=== PATIENT | female | born 1960 | race Caucasian/White ===

== ENCOUNTER → 2019-01-11 10:09 | Outpatient (CLI) | payer OTHER, SELFPAY ==
--- NOTE | 2019-01-11 10:13 | BI_ITS ---
MAMMOGRAPHY - BILATERAL SCREENING REASON FOR EXAM: Female, 59 years old. Routine annual screening examination. PERTINENT HISTORY: Remote left and right stereotactic breast biopsies. TECHNIQUE: Digital bilateral breast nichole (3D mammographic acquisition) in the CC and MLO projections. 2-D mediolateral oblique (MLO) and craniocaudad (CC) views of both breasts were obtained. CAD: Full Field Digital Mammography with Computer Added Detection was performed. COMPARISON: Comparison is made with prior study dated September 29, 2017 and September 22, 2016. FINDINGS: Breast Composition: There are scattered areas of fibroglandular density. There are no dominant masses or suspicious calcifications. 2 Sterotactic there are surgical markers are seen in the upper lateral aspect of the left breast. A sterile fact that tissue clip marker is seen in the deep midportion of the right breast. No other significant abnormalities are identified. There has been no significant change since the prior study. BI/SCREENING MAMM (CAD), BILAT IMPRESSION: Stable bilateral screening mammogram. Yearly follow-up mammogram recommended. (A) ASSESSMENT CATEGORY: BIRADS Category 2: Benign. A letter regarding these results will be sent to the patient by the facility within 30 days. Approximately 10% of breast cancers are not detected by mammography. A normal mammogram should not delay biopsy of a clinically suspicious abnormality. [id number] Electronically Signed: Rob Perez, at 13:42 EDT , Service support ,
== END ==
PROVIDERS: Family Provider Internal Medicine; PCP Internal Medicine; Referring Provider Internal Medicine; Visit Provider Internal Medicine
DX: Z12.31 Encounter for screening mammogram for malignant neoplasm of breast (principal)
CPT/HCPCS: 77063; 77067

== ENCOUNTER → 2021-06-29 | Outpatient (CLI) | payer SELFPAY ==
[2021-07-05 21:48] LABS: HPV APTIMA, High Risk Negative (Negative)
== END | disposition home or self-care (01) ==
LOC: LABSPEC 12:19
PROVIDERS: PCP Internal Medicine; Visit Provider Obstetrics & Gynecology
DX: Z12.4 Encounter for screening for malignant neoplasm of cervix (principal)
CPT/HCPCS: 87624; 88175; G0145

== ENCOUNTER → 2021-07-28 08:26 | Outpatient (CLI) | payer SELFPAY ==
--- NOTE | 2021-07-28 08:32 | BI_ITS ---
MAMMOGRAPHY - BILATERAL SCREENING REASON FOR EXAM: Female, 61 years old. Routine annual screening examination. PERTINENT HISTORY: Non-contributory. Remote left stereotactic and left ultrasound-guided breast biopsies. Prior right stereotactic breast biopsy. TECHNIQUE: Digital bilateral breast arnulfo (3D mammographic acquisition) in the CC and MLO projections. 2-D mediolateral oblique (MLO) and craniocaudad (CC) views of both breasts were obtained. CAD: Full Field Digital Mammography with Computer Added Detection was performed. COMPARISON: Comparison is made with prior examination dated 01/11/2019 and 09/29/2017. FINDINGS: Breast Composition: There are scattered areas of fibroglandular density. There are no dominant masses or suspicious calcifications. Once again, 2 Sterotactic tissue clip markers are seen in the upper lateral aspect of the left breast. A tissue clip marker is also seen in the deep midportion of the right breast No other significant abnormalities are identified. There has been no significant change since the prior study. BI/SCRN MAMM (CAD)W/ARNULFO BILAT IMPRESSION: Stable bilateral screening mammogram. Yearly follow-up mammogram recommended. (A) ASSESSMENT CATEGORY: BIRADS Category 2: Benign. A letter regarding these results will be sent to the patient by the facility within 30 days. Approximately 10% of breast cancers are not detected by mammography. A normal mammogram should not delay biopsy of a clinically suspicious abnormality. [id number] Electronically Signed: Rob Perez MD at 9:29 EDT , Service support ,
--- NOTE | 2021-07-28 09:00 | BD_ITS ---
STUDY: DUAL ENERGY X-RAY ABSORPTIOMETRY / DXA REASON FOR EXAM: Female, 61 years old. [id number]. Patient is postmenopausal. TECHNIQUE: Bone Mineral Density (BMD) measurements of lumbar spine and bilateral hips were obtained. COMPARISON: Comparison is made with prior study dated 09/22/2016. FINDINGS: Lumbar Spine (L1-L4): g/cm2 (0.799) / T-score (-2.3) / Z-score (-0.7) Findings are suggestive of osteopenia with a high fracture risk. Left Femur Total: g/cm2 (0.757) / T-score (-1.5) / Z-score (-0.5) Left Femoral Neck: g/cm2 (0.716) / T-score (-1.2) / Z-score (0.2) Right Femur Total: g/cm2 (0.781) / T-score (-1.3) / Z-score (-0.3) Right Femoral Neck: g/cm2 (0.670) / T-score (-1.6) / Z-score (-0.3) The T-Scores on the most recent prior examination were: Lumbar Spine (L1-L4): There has been worsening of bone density since the previous examination. Left Femur Total: which represents a worsening of 6.6%. Right Femur Total: which represents a worsening of 3.9%. BD/Dexa Bone Density Study IMPRESSION: The patient is considered osteopenic as outlined below according to World Lang Organization (WHO) criteria with a high fracture risk. There has been worsening of bone density since the previous examination. Reference Information: The T-score is the number of standard deviations above or below the standard which is normal for young adults at their peak bone mineral density. The World Health Organization (WHO) interprets the T-scores as follows: Above -1 Normal bone density Between -1 and -2.5 Osteopenia Equal to / or below -2.5 Osteoporosis As a practical clinical guideline, osteopenia may be graded as follows: Mild -1 through -1.5 Moderate -1.6 through -2.0 Severe -2.1 through -2.4 The Z-score is the number of standard deviations above or below age-matched controls. A Z-score of less than -1.5 would be considered abnormal. References: 1. NIH Osteoporosis and Related Bone Diseases www osteo.org 2. International Society for Clinical Densitometry www iscd.org 3. National Osteoporosis Foundation www nof.org Electronically Signed: Rob Perez MD at 9:28 EDT , Service support ,
== END ==
PROVIDERS: PCP Internal Medicine; Visit Provider Obstetrics & Gynecology
DX: Z12.31 Encounter for screening mammogram for malignant neoplasm of breast (principal); N95.1 Menopausal and female climacteric states
CPT/HCPCS: 77063; 77067; 77080

== ENCOUNTER → 2023-08-08 | Outpatient (CLI) | payer SELFPAY ==
--- NOTE | 2023-08-08 12:28 | BI_ITS ---
MAMMOGRAPHY - BILATERAL SCREENING REASON FOR EXAM: Female, 63 years old. Routine annual screening examination. PERTINENT HISTORY: Prior bilateral stereotactic breast biopsies. TECHNIQUE: Digital bilateral breast arnulfo (3D mammographic acquisition) in the CC and MLO projections. 2-D mediolateral oblique (MLO) and craniocaudad (CC) views of both breasts were obtained. CAD: Full Field Digital Mammography with Computer Added Detection was performed. COMPARISON: Comparison is made with prior study July 28, 2021 and January 11, 2019. FINDINGS: Breast Composition: There are scattered areas of fibroglandular density. There are no dominant masses or suspicious calcifications. Once again, 2 tissue markers are seen in the upper lateral aspect of the left breast as well as a tissue clip marker in the deep midportion of the right breast. No other significant abnormalities are identified. There has been no significant change since the prior study. BI/SCRN MAMM (CAD)W/ARNULFO BILAT IMPRESSION: Stable bilateral screening mammogram. Yearly follow-up mammogram recommended. (A) ASSESSMENT CATEGORY: BIRADS Category 2: Benign. A letter regarding these results will be sent to the patient by the facility within 30 days. Approximately 10% of breast cancers are not detected by mammography. A normal mammogram should not delay biopsy of a clinically suspicious abnormality. [id number] Electronically Signed: Rob Perez MD at 13:34 EDT ,
== END | disposition home or self-care (01) ==
PROVIDERS: PCP Internal Medicine; Referring Provider Internal Medicine; Visit Provider Internal Medicine
DX: Z12.31 Encounter for screening mammogram for malignant neoplasm of breast (principal)
CPT/HCPCS: 77063; 77067

== ENCOUNTER → 2024-10-07 | Outpatient (CLI) | payer SELFPAY ==
[2024-10-07 12:46] LABS: Absolute Lymphocyte Count 1.31 X10^3/uL (0.83-4.51); Absolute Neutrophil Count 4.9 X10^3/uL (2.0-7.7); Basophil# 0.04 X10^3/uL; Basophil% 0.6 % (0-1); Eosinophil# 0.04 X10^3/uL; Eosinophils% 0.6 % (0-5); Hematocrit 41.8 % (37-47); Hemoglobin 14.1 g/dL (12.0-15.0); Lymphocyte # 1.31 X10^3/ul (0.83-4.51); Mean Corp Hgb Conc 33.7 g/dL (32-36); Mean Corpuscular Hgb 33.2 pg (27.0-32.0); Mean Corpuscular Volume 98.4 fL (81-99); Mean Platelet Vol. 9.7 fl (6.2-12.0); Monocyte# 0.61 X10^3/uL; Monocyte% 8.8 % (0-10); NRBC Flagged by Analyzer 0 % (0-5); Neutrophil % 70.9 % (47-70); Platelet Count 302 K/mm3 (150-450); RBC Distribution Width CV 12.2 % (11.6-14.6); RBC Distribution Width SD 44.2 fl (35.1-43.9); Red Blood Count 4.25 M/mm3 (4.2-5.4); White Blood Count 6.9 K/mm3 (4.4-11.0)
--- NOTE | 2024-10-07 13:00 | RAD_ITS ---
STUDY: X-RAY CHEST REASON FOR EXAM: Female, 64 years old. Retinal artery branch occlusion, left eye TECHNIQUE: PA and lateral views of the chest. COMPARISON: 05/13/2014 FINDINGS: The lungs are clear and expanded. There is no demonstrated pleural abnormality. Normal size heart. Normal mediastinum and gianna. Normal visualized pulmonary arteries. Normal visualized aortic arch and descending thoracic aorta. Normal visualized thoracic spine. Normal visualized ribs, clavicles, and shoulders. There is no demonstrated abnormality of the visualized soft tissue structures of the upper abdomen. RAD/Chest PA and Lateral IMPRESSION: Normal x-ray examination of the chest. Electronically Signed: Guillaume Garvin MD at 12:04 [facility] ,
[2024-10-07 13:19] LABS: Anion Gap 4 (5-15); BUN 21 mg/dL (7-18); BUN/Creat Ratio 26.2 RATIO (10-20); Calcium,Total 9.9 mg/dL (8.5-10.1); Chloride 106 mmol/L (98-107); EST Glomerular Filtration Rate 77 mL/min (>60); Est Glom Filt Rate - Afr Amer 93 mL/min (>60); Glucose 95 mg/dL (74-106); Potassium 3.6 mmol/L (3.5-5.1); Sodium Level 139 mmol/L (136-145)
[2024-10-07 13:35] LABS: Syphilis Antibodies Non-reactive
[2024-10-10 13:07] LABS: ANTINUCLEAR ANTIBODIES DIRECT Negative (Negative)
[2024-10-14 16:09] LABS: Angiotensin Convert Enzyme 40 U/L (14-82); Lyme IgG P18 Ab Absent (.); Lyme IgG P23 Ab Absent (.); Lyme IgG P28 Ab Absent (.); Lyme IgG P30 Ab Absent (.); Lyme IgG P39 Ab Absent (.); Lyme IgG P41 Ab Absent (.); Lyme IgG P45 Ab Absent (.); Lyme IgG P58 Ab Absent (.); Lyme IgG P66 Ab Absent (.); Lyme IgG P93 Ab Absent (.); Lyme IgG WB Interpretation Negative (.); Lyme IgM P23 Ab Absent (.); Lyme IgM P39 Ab Absent (.); Lyme IgM P41 Ab Absent (.); Lyme IgM WB Interpretation Negative (.); QNTFERON TB Mitogen Value > 10.00 IU/mL (.); QNTFERON TB Nil Value 0.01 IU/mL (.); QNTFERON TB1+ Ag Value 0.03 IU/mL (.); QNTFERON TB2+ Ag Value 0.05 IU/mL (.); QNTIFERON TB Positive Criteria Negative (Negative)
== END | disposition home or self-care (01) ==
PROVIDERS: PCP Internal Medicine
DX: H34.232 Retinal artery branch occlusion, left eye (principal)
CPT/HCPCS: 36415; 71046; 80048; 82164; 85025; 86038; 86480; 86617; 86780

== ENCOUNTER → 2024-10-16 | Outpatient (CLI) | payer SELFPAY ==
--- NOTE | 2024-10-16 10:39 | ECHOD_ITS ---
Reason For Study: Retinal Artery Branch Occlusion Procedure This was a 2D Doppler, Color Flow transthoracic echocardiogram. Exam performed in department. Left Ventricle Normal LV size. The estimated ejection fraction is 65 %. No evidence for diastolic dysfunction. Right Ventricle Normal RV size. Normal systolic function. Atria The left and right atria are normal. Bubble contrast study negative for right to left interatrial shunt. Mitral Valve There is no mitral valve stenosis. No mitral valve insufficiency. Tricuspid Valve There is no tricuspid stenosis. Trivial tricuspid valve insufficiency. Pulmonary artery systolic pressure is 25 mmHg. Aortic Valve Trisinus/trileaflet aortic valve. There is no aortic stenosis. No aortic valve insufficiency. Pulmonic Valve There is no pulmonic valvular stenosis. No pulmonic valve insufficiency. Great Vessels Normal aortic root. Pericardium/Pleural No pericardial effusion. Medication 22 gauge I.V. with prn adaptor inserted into right arm. Performed a rapid injection of agitated mix of 9 cc saline and 1cc air to assess for atrial septal defect. MMode/2D Measurements & Calculations LVIDd: 3.9 cm IVSd: 0.95 cm LAV(MOD-bp): 20.8 ml LVIDs: 2.1 cm LVPWd: 0.92 cm RVDd: 2.6 cm FS: 47.3 % LAV(MOD-bp) Indexed: 14.1 ml/m2 LAV(MOD-sp2): 21.3 ml LAV(MOD-sp4): 18.3 ml SV(MOD-sp4): 39.6 ml SV(sp4-el): 43.0 ml LVAd ap4: 22.0 cm2 LVLd ap4: 6.9 cm SI(MOD-sp4): 26.9 ml/m2 EDV(MOD-sp4): 56.4 ml EDV(sp4-el): 59.5 ml LVAs ap4: 10.5 cm2 LVLs ap4: 5.6 cm ESV(MOD-sp4): 16.8 ml ESV(sp4-el): 16.5 ml EF(MOD-sp4): 70.2 % EF(sp4-el): 72.3 % LA dimension(2D): 3.0 cm LA A4 area: 9.0 cm2 RA A4 area: 6.5 cm2 TAPSE: 1.5 cm Time Measurements MV dec time: 0.20 sec Doppler Measurements & Calculations MV E max corbin: 97.9 cm/sec Lat Peak E' Corbin: 7.8 cm/sec Med Peak E' Corbin: 7.6 cm/sec MV A max corbin: 112.2 cm/sec E/E' lat: 12.6 E/E' med: 12.8 MV E/A: 0.87 MV V2 max: 124.5 cm/sec MV P1/2t max corbin: 107.1 cm/sec Ao V2 max: 112.9 cm/sec MV max P.2 mmHg MV P1/2t: 62.2 msec Ao max P.1 mmHg MV V2 mean: 58.8 cm/sec MV dec slope: 504.3 cm/sec2 Ao V2 mean: 83.9 cm/sec MV mean P.7 mmHg MVA(P1/2t): 3.5 cm2 Ao mean P.1 mmHg MV V2 VTI: 31.3 cm Ao V2 VTI: 28.2 cm LV V1 max: 102.4 cm/sec PA V2 max: 104.5 cm/sec TR max corbin: 226.9 cm/sec LV V1 max P.2 mmHg TR max P.6 mmHg ECHO/Echo Complete Interpretation Summary The estimated ejection fraction is 65 %. No evidence for diastolic dysfunction. Ordering Physician: CARLOS COLLIER Referring Physician: CARLOS COLLIER Performed By: Ok Arnold RCS
[2024-10-16 12:58] LABS: Erythrocyte Sedimentation Rate 5 mm/hr (0-30)
[2024-10-16 13:12] LABS: CRP < 2.90 mg/L (0.0-3.0)
[2024-10-17 15:08] LABS: Cytoplasmic Ab (C-ANCA) <1:20 titer (Neg:<1:20); Perinuclear Ab (P-ANCA) <1:20 titer (Neg:<1:20); Toxoplasma Gondii IgG < 3.0 IU/mL (0.0-7.1); Toxoplasma Gondii IgM < 3.0 AU/mL (0.0-7.9)
== END | disposition home or self-care (01) ==
PROVIDERS: PCP Family Medicine
DX: H34.232 Retinal artery branch occlusion, left eye (principal)
CPT/HCPCS: 36415; 85652; 86037; 86140; 86695; 86696; 86777; 86778; 93306; A4216

== ENCOUNTER → 2024-11-06 | Outpatient (CLI) | payer SELFPAY ==
[2024-11-06 12:22] LABS: Absolute Lymphocyte Count 1.54 X10^3/uL (0.83-4.51); Absolute Neutrophil Count 2.5 X10^3/uL (2.0-7.7); Basophil# 0.04 X10^3/uL; Basophil% 0.9 % (0-1); Eosinophil# 0.08 X10^3/uL; Eosinophils% 1.7 % (0-5); Hematocrit 40.3 % (37-47); Hemoglobin 13.1 g/dL (12.0-15.0); Lymphocyte # 1.54 X10^3/ul (0.83-4.51); Lymphocyte % 33.3 % (19-41); Mean Corp Hgb Conc 32.5 g/dL (32-36); Mean Corpuscular Hgb 31.8 pg (27.0-32.0); Mean Corpuscular Volume 97.8 fL (81-99); Mean Platelet Vol. 10.1 fl (6.2-12.0); Monocyte# 0.46 X10^3/uL; Monocyte% 9.9 % (0-10); NRBC Flagged by Analyzer 0 % (0-5); Neutrophil # 2.46 X10^3/uL (2.7-7.7); Neutrophil % 53.1 % (47-70); Platelet Count 278 K/mm3 (150-450); RBC Distribution Width CV 12.3 % (11.6-14.6); RBC Distribution Width SD 44.1 fl (35.1-43.9); Red Blood Count 4.12 M/mm3 (4.2-5.4); White Blood Count 4.6 K/mm3 (4.4-11.0)
[2024-11-06 12:36] LABS: Vitamin D,25 Hydroxy 81.3 ng/mL
[2024-11-06 12:55] LABS: ALB/GLOB Ratio 1.1 RATIO (0.9-2.4); AST(SGOT) 19 U/L (15-37); Alanine Aminotransfer ALT/SGPT 33 U/L (13-56); Albumin, Serum 3.9 g/dL (3.2-5.0); Alkaline Phosphatase 61 U/L (45-117); Anion Gap 7 (5-15); BUN 20 mg/dL (7-18); BUN/Creat Ratio 26.5 RATIO (10-20); Calcium,Total 9.4 mg/dL (8.5-10.1); Chloride 105 mmol/L (98-107); Cholesterol 257 mg/dL (200); Creatinine, Serum 0.76 mg/dL (0.55-1.02); EST Glomerular Filtration Rate 82 mL/min (>60); Est Glom Filt Rate - Afr Amer 99 mL/min (>60); Globulin 3.5 g/dL (2.2-4.2); Glucose 92 mg/dL (74-106); High Density Lipoprotein 70 mg/dL; Protein, Total 7.4 g/dL (6.4-8.2); Sodium Level 139 mmol/L (136-145); Triglycerides 64 mg/dL; Very Low Density Lipoprotein 13 mg/dL (5-40)
== END | disposition home or self-care (01) ==
PROVIDERS: PCP Family Medicine; Referring Provider Family Medicine; Visit Provider Family Medicine
DX: M85.80 Other specified disorders of bone density and structure, unspecified site (principal); Z13.228 Encounter for screening for other metabolic disorders; Z13.6 Encounter for screening for cardiovascular disorders
CPT/HCPCS: 36415; 80053; 80061; 82306; 84443; 85025

== ENCOUNTER → 2025-02-25 | Outpatient (CLI) | payer MEDICARE, BC, SELFPAY ==
--- NOTE | 2025-02-25 09:49 | BI_ITS ---
EXAM: SCRN MAMM (CAD)W/ARNULFO BILAT DATE: 02/25/2025 CLINICAL HISTORY: F, Age 65 y/o , SCREENING No family history. Prior bilateral stereotactic breast biopsies. TECHNIQUE: Bilateral screening digital breast tomosynthesis with 2D and 3D images. Computer aided detection. COMPARISON: Prior exam(s) dated August 08, 2023.. FINDINGS: TISSUE DENSITY: The breast tissue is composed of scattered area of fibroglandular density. Bilateral Breast Mammographic Findings: No significant masses, calcifications or other abnormalities are identified. Once again, there are 2 tissue clip markers in the slightly upper lateral aspect of the left breast. A tissue clip marker is also seen in the central portion of the right breast. No suspicious masses, areas of developing architectural distortion, or suspicious calcifications. There has been no significant interval change. BI/SCRN MAMM (CAD)W/ARNULFO BILAT IMPRESSION: OVERALL FINAL ASSESSMENT: BIRADS 2 BENIGN FINDING RECOMMENDATION: Routine annual follow-up in 1 Year A letter with findings and recommendations will be mailed to the patient. Reading Location: [place] [id number]
--- NOTE | 2025-02-25 09:54 | BD_ITS ---
PROCEDURE: DEXA BONE DENSITY STUDY 02/25/2025 REASON FOR EXAM: F, age 65 y/o . Postmenopausal. TECHNIQUE: DXA scan of sites with data reported below. REFERENCE LINKS: [facility] Adult Positions COMPARISON: July 28, 2021. FINDINGS: BMD and T-SCORES Lumbar spine: 0.846 g/cm2, T-score -1.8 Levels: L1 through L4 Change from prior: Improvement of 5.8%. Left femoral neck: 0.652 g/cm2, T-score -1.8 Femoral neck comparison data not recommended for monitoring change. Left total hip: 0.744 g/cm2, T-score -1.6 Change from prior: Loss of 1.7%. Right femoral neck: 0.656 g/cm2, T-score -1.7 Femoral neck comparison data not recommended for monitoring change. Right total hip: 0.747 g/cm2, T-score -1.6 Change from prior: Loss of 4.3%. The World Health Organization has defined the following categories based on bone density: Normal bone density: T-score equal to or greater than -1.0 Osteopenia: T-score between -1.0 and -2.5 Osteoporosis: T-score equal to or less than -2.5 The patient does meet the pharmacological treatment recommendations for prevention of osteoporosis. BD/Dexa Bone Density Study IMPRESSION: OSTEOPENIA. Recommend follow-up as clinically warranted. Reading Location: [place] [address]
== END | disposition home or self-care (01) ==
LOC: OPBD 09:47
PROVIDERS: PCP Family Medicine; Referring Provider Family Medicine; Visit Provider Family Medicine
DX: Z12.31 Encounter for screening mammogram for malignant neoplasm of breast (principal); M85.88 Other specified disorders of bone density and structure, other site
CPT/HCPCS: 77063; 77067; 77080

== ENCOUNTER 2025-04-02 11:30 | Outpatient (RCR) | payer MEDICARE, BC, SELFPAY ==
--- NOTE | 2025-03-13 12:53 | HP.PTEVAL ---
Patient's Visit Information Visit Information Visit Information: SAVANNAH CORREIA is a 65 year old F referred to Physical Therapy by Katherine Chew [facility], with a diagnosis of Bone Density. Date of Evaluation: 03/13/25 Physical Therapist: Janis Yadav DPT Visit Plan Frequency: 2x /Week Duration: 4 Weeks Plan: WB Exercises- give gym HEP HEP Given: sit to stand, HR/TR, hip abd/ext/flexn, SLS Subjective Subjective: Patient reports that she had a bone density test that showed that she has issues. 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 She was cleared in January to get back into things- without lifting heavy- so she just needs to know what to do. She plans to use her [employer]. She goes to the chiropractor regularly due to Fibromyalgia- she has discomfort throughout her body- but nothing specific. No joint replacements. No loss of balance or falls. 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 Likes to be outside and garden- walking. Sleep: no difficulty. PMHx/Meds: see list in chart. Objective Objective: Posture: fair throughout Stairs: asc/desc 8 recip without HR HR/TR: able without UE A SLS: 15 sec each LE mild increase in sway Gait: good arm swing- no deviation noted ROM: WNL in all planes Strength: Scap: fair, Core: fair. UE: 4+/5 throughout, LE: Hip: 4+/5, Knee: 5/5 Ankle: 5/5 Flex:HS: moderate, Gastroc: moderate Balance/Special Test Scores 30 Second Chair Rise Test Seconds: 13 Goals Goal 1:: Patient will be I with HEP and progression Goal Time Frame: 4-6 Weeks Goal 2:: Patient will 15 sit to stands in 30 seconds Goal Time Frame: 4-6 Weeks Rehabilitation Potential Physical Therapy Diagnosis: Patient presents with decreased bone density- she has decreased strength and muscular endurance Rehabilitation Potential: Good Anticipated Interventions Therapeutic Exercise to Include: Strength training, Endurance training, Balance training, Coordination, Agility training, Body mechanics, Postural training, Flexibilty training, Gait and locomotor training, Neuromotor development, Dynamic Lumbar Stabilization and Scapular Strength/Stabilization For the Purpose of:: To improve muscle performance and motor function Text: Thank you for the opportunity to evaluate your patient. For Medicare and Medicare HMO plans, please review the plan of care and approve it. It will need to be FAXED BACK to us at [phone] for Medicare purposes. For Medicare only, by signing this I certify the plan of care. Please let me know if there are questions or concerns regarding this plan of care. Physician Signature: Date:
--- NOTE | 2025-03-13 12:53 | HP.PTEVAL ---
Patient's Visit Information Visit Information Visit Information: SAVANNAH CORREIA is a 65 year old F referred to Physical Therapy by Katherine Chew [facility], with a diagnosis of Bone Density. Date of Evaluation: 03/13/25 Physical Therapist: Janis Yadav DPT Visit Plan Frequency: 2x /Week Duration: 4 Weeks Plan: WB Exercises- give gym HEP HEP Given: sit to stand, HR/TR, hip abd/ext/flexn, SLS Subjective Subjective: Patient reports that she had a bone density test that showed that she has issues. 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 She was cleared in January to get back into things- without lifting heavy- so she just needs to know what to do. She plans to use her [employer]. She goes to the chiropractor regularly due to Fibromyalgia- she has discomfort throughout her body- but nothing specific. No joint replacements. No loss of balance or falls. 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 Likes to be outside and garden- walking. Sleep: no difficulty. PMHx/Meds: see list in chart. Objective Objective: Posture: fair throughout Stairs: asc/desc 8 recip without HR HR/TR: able without UE A SLS: 15 sec each LE mild increase in sway Gait: good arm swing- no deviation noted ROM: WNL in all planes Strength: Scap: fair, Core: fair. UE: 4+/5 throughout, LE: Hip: 4+/5, Knee: 5/5 Ankle: 5/5 Flex:HS: moderate, Gastroc: moderate Balance/Special Test Scores 30 Second Chair Rise Test Seconds: 13 Goals Goal 1:: Patient will be I with HEP and progression Goal Time Frame: 4-6 Weeks Goal 2:: Patient will 15 sit to stands in 30 seconds Goal Time Frame: 4-6 Weeks Rehabilitation Potential Physical Therapy Diagnosis: Patient presents with decreased bone density- she has decreased strength and muscular endurance Rehabilitation Potential: Good Anticipated Interventions Therapeutic Exercise to Include: Strength training, Endurance training, Balance training, Coordination, Agility training, Body mechanics, Postural training, Flexibilty training, Gait and locomotor training, Neuromotor development, Dynamic Lumbar Stabilization and Scapular Strength/Stabilization For the Purpose of:: To improve muscle performance and motor function Text: Thank you for the opportunity to evaluate your patient. For Medicare and Medicare HMO plans, please review the plan of care and approve it. It will need to be FAXED BACK to us at [phone] for Medicare purposes. For Medicare only, by signing this I certify the plan of care. Please let me know if there are questions or concerns regarding this plan of care. Physician Signature: Date:
--- NOTE | 2025-04-02 12:38 | HP.PTDCSUM ---
Discharge Summary D/C summary: It has been my pleasure to treat SAVANNAH CORREIA referred by Katherine Chew [facility], , with the diagnosis of Bone Density for a total of 7 visit(s). Discharge Date: Please see the following information for a summary of their discharge status. Subjective Subjective: Patient reports that she feels that she is doing well. She has noticed that she feels better the more she is moving. She feels confident with the exercises and plans to do then exercises at the [facility]. Objective Objective/Function: Patient was able to complete without incidence. Appropriate to be discharged and continue HEP and [facility] Goals Goal 1:: Patient will be I with HEP and progression Goal Progress: Goal Met Goal 2:: Patient will 15 sit to stands in 30 seconds Goal Progress: Goal Met Plan Plan: Discharge to home exercise program- encouraged to call if questions. D/C Information d/c sentence: If there are questions or concerns regarding this patient's physical therapy, please feel free to call me at [phone]. Thank you for the referral of this patient. Sincerely, Janis Yadav DPT Balance/Gait/Functional tests Balance/Special Test Scores Lower Extremity Functional Score: 73 30 Second Chair Rise Test Seconds: 13
--- NOTE | 2025-04-02 12:38 | HP.PTDCSUM ---
Discharge Summary D/C summary: It has been my pleasure to treat SAVANNAH CORREIA referred by Katherine Chew [facility], , with the diagnosis of Bone Density for a total of 7 visit(s). Discharge Date: Please see the following information for a summary of their discharge status. Subjective Subjective: Patient reports that she feels that she is doing well. She has noticed that she feels better the more she is moving. She feels confident with the exercises and plans to do then exercises at the [facility]. Objective Objective/Function: Patient was able to complete without incidence. Appropriate to be discharged and continue HEP and Rec Center Goals Goal 1:: Patient will be I with HEP and progression Goal Progress: Goal Met Goal 2:: Patient will 15 sit to stands in 30 seconds Goal Progress: Goal Met Plan Plan: Discharge to home exercise program- encouraged to call if questions. D/C Information d/c sentence: If there are questions or concerns regarding this patient's physical therapy, please feel free to call me at [phone]. Thank you for the referral of this patient. Sincerely, Janis Yadav DPT Balance/Gait/Functional tests Balance/Special Test Scores Lower Extremity Functional Score: 73 30 Second Chair Rise Test Seconds: 13
== END 2025-04-02 19:00 | disposition home or self-care (01) ==
LOC: PT 11:30
PROVIDERS: PCP Family Medicine; Referring Provider Family Medicine; Visit Provider Family Medicine
DX: M85.80 Other specified disorders of bone density and structure, unspecified site (principal)
CPT/HCPCS: 97110; 97162; 97530